=== PATIENT | female | born 1955 | race Caucasian/White ===

== ENCOUNTER → 2025-03-15 | Outpatient (CLI) | payer MEDICARE ==
[~2025-03-15] MED LIST: PROHANCE 279.3MG/ML 5ML VIAL ONE
== END ==
LOC: M PLAIMG 13:51
PROVIDERS: ATTEND Otolaryngology
DX: R22.1 Localized swelling, mass and lump, neck (principal)
CPT/HCPCS: 70543; A9576

== ENCOUNTER → 2025-04-01 | Outpatient (CLI) | payer MEDICARE ==
[2025-04-01] MEDS: LIDOCAINE 1% MDV 20 ML VIAL SC STA (08:04)
[2025-04-01 08:09] VITALS: BP 176/87; TEMP 98.3; O2SAT 97
== END ==
LOC: M IRPRO 07:58 → EDUNIT# 09:00
PROVIDERS: ATTEND Otolaryngology
DX: C07 Malignant neoplasm of parotid gland (principal); R22.1 Localized swelling, mass and lump, neck